=== PATIENT | female | born 1940 | race Caucasian/White ===

== ENCOUNTER 2016-09-04 21:36 | Inpatient (IN) ==
[2016-09-04] MEDS ORDERED: CLINDAMYCIN INJ 900 MG in PREMIX 1 EACH IV STA (21:59)
[2016-09-04] MEDS ORDERED: FUROSEMIDE 100 MG/10 ML VIAL IV STA (21:59)
[2016-09-04] MEDS ORDERED: ALBUTEROL/IPRATROPIUM 3 ML NEB RESP TX STA (21:59)
[2016-09-04] MEDS ORDERED: ASPIRIN 325 MG TABLET PO STA (21:59)
--- NOTE | 2016-09-04 22:05 | Emergency Department Note ---
Arrival - Arrival Chief Complaint: Shortness of Breath ED Nursing Triage Note: C/O SOB with minimal exertion or laying down/Lower ext edema. Onset a couple of days ago and progressively getting worse. Pt reports a history of CHF. Pt was given Lasix 40mg by EMS Mode of Arrival: Stretcher Limitations: No Limitations Source: Patient Time Seen by Provider: 09/04/16 21:59 - History of Present Illness HPI Narrative: This 75-year-old white female visiting the area presents with 2 days of progressive dyspnea on exertion and at rest with lower extremity edema as well as left lower extremity pain. Patient has had complaints of orthopnea and PND associated with intermittent left sided chest pain in association with this situation. Patient has long-standing coronary artery disease and is status post CABG, congestive heart failure, and atrial fibrillation. Currently the patient speaks in full sentences and does not appear in acute distress. Onset (ago): day(s) (Patient presents 2 days post onset of symptoms) Date of Last Menstrual Period: Hysterectomy Allergies/Adverse Reactions: Allergies Allergy/AdvReac Type Severity Reaction Status Date / Time No Known Allergies Allergy Verified 09/04/16 21:45 Home Medications: Home Medications Medication Instructions Recorded Confirmed Type Aspirin [Aspirin EC] 81 mg PO DAILY 09/04/16 09/04/16 History Atorvastatin [Lipitor] 40 mg PO DAILY 09/04/16 09/04/16 History Carbidopa/Levodopa 25-100 [Sinemet 1 tablet PO TID 09/04/16 09/04/16 History 25-100] Fenofibrate [Tricor] 145 mg PO DAILY 09/04/16 09/04/16 History Furosemide Tab [Lasix Tab] 80 mg PO DAILY PRN 09/04/16 09/04/16 History Levothyroxine Tab [Synthroid Tab] 88 mcg PO DAILY@0700 09/04/16 09/04/16 History Lipase/Protease/Amylase [Zenpep 2 capsule PO TID W/MEALS 09/04/16 09/04/16 History 15,000 Units] Losartan [Cozaar] 50 mg PO DAILY 09/04/16 09/04/16 History Methocarbamol Tab [Robaxin Tab] 500 mg PO QID 09/04/16 09/04/16 History Mirtazapine [Remeron] 30 mg PO BEDTIME 09/04/16 09/04/16 History Ospemifene [Osphena] 60 mg PO DAILY 09/04/16 09/04/16 History Potassium Chloride 10 meq PO DIRECTED PRN 09/04/16 09/04/16 History Pramipexole Di-HCl [Pramipexole 1 mg PO BID 09/04/16 09/04/16 History Dihydrochloride] Pramipexole [Mirapex] 1 mg PO BID 09/04/16 09/04/16 History buPROPion XL [Wellbutrin Xl] 150 mg PO DAILY 09/04/16 09/04/16 History clonazePAM [Klonopin] 1 mg PO BID 09/04/16 09/04/16 History dilTIAZem HCl [Diltiazem HCl] 120 mg PO DAILY 09/04/16 09/04/16 History Review of System - Review of System 12 point system: reviewed and no additional remarkable complaints except as stated - Review of System Constitutional: Present: as per HPI Respiratory: Present: as per HPI Cardiovascular: Present: as per HPI Musculoskeletal: Present: as per HPI Medical,Surgical,& Family Hx - Medical History Cardio: History of: Cardiac Dysrhythmia (AFib), CHF, Hypertension Neurology: History of: Parkinson's Disease - Social History Smoking Status: Former smoker Frequency of Alcohol Use: None Type of Drug Use: None Exam Physical Examination: GENERAL: Well developed, well nourished elderly white in no acute distress. HEENT: Normocephalic. No trauma. Moist mucous membranes. EOMI. PERRLA. ENT NML NECK: Supple. No adenopathy. No JVD CARDIAC: Regular. No murmurs. Heart rate 90 CHEST: Scattered bibasilar inspiratory rales. No respiratory distress. O2 sat 97% ABDOMEN: Soft. Nontender. Active bowel sounds. EXTREMITIES: No trauma. Normal ROM. 1+ pedal edema. SKIN: No diaphoresis. No rash. Superficial cellulitis of the left lower extremity with some left calf tenderness with soft Homans sign NEURO: Alert. Neuro intact no focal deficits. Vital Signs: Vital Signs Temperature 98.9 F 09/04/16 21:36 Pulse Rate 78 09/04/16 22:27 Respiratory Rate 18 09/04/16 22:27 Blood Pressure 123/79 09/04/16 21:36 O2 Sat by Pulse Oximetry 99 09/04/16 22:27 Course - Reevaluation(s) Reevaluation #1: Advised patient with the multiplicity of problems she has, she will have to face hospitalization. - Consultations Consultation #1: Discussed with hospitalist service who will admit for further evaluation treatment. Results - Labs CBC & BMP: 09/04/16 21:49 09/04/16 21:49 Labs: I reviewed the laboratory and noted the elevated white blood cell count and BNP. - Impressions EKG: Sinus rhythm at 90 with normal TN interval and QRS duration. Normal ST segments, normal EKG. - Diagnostic Findings Procedure: Chest x-ray: image reviewed by me, report reviewed by me (Mild cardiomegaly otherwise unremarkable), Ultrasound: image reviewed by me, report reviewed by me (Left leg: Stent left common femoral vein, nonoccluding thrombus left common femoral vein, no DVT in the femoral, proximal deep femoral, or popliteal veins.) Disposition Clinical Impression: Congestive heart failure, Superficial cellulitis LLE, Deep vein thrombosis (DVT ) of femoral vein of left lower extremity Case discussed with: patient, patient's family Disposition: Still a Patient Condition: Guarded Time of Disposition: 00:51
[2016-09-04] MEDS ORDERED: NITROGLYCERIN 2% OINT 1 INCH/GM PACK TOP STA (22:06)
[2016-09-04 22:12] LABS: Basophils # 0.1 10*3/uL (0.0-0.2); Basophils % 0.4 % (0.0-0.8); Eosinophils # 0.8 10*3/uL (0.0-0.87); Eosinophils % 4.9 % (0.00-10.9); Hematocrit 32.3 VOL% (35.7-47.0); Hemoglobin 11.2 GM/DL (12.0-16.0); Immature Granulocytes % 0.5 %; Immature Granulocytes Absolute 0.08 #; Lymphocytes # 1.8 10*3/uL (1.4-4.0); Lymphocytes % 11.6 % (21.3-54.2); Mean Corpuscular HGB Conc 34.7 GM/DL (32-36); Mean Corpuscular Hemoglobin 32 PG (27-34); Mean Corpuscular Volume 92.6 FL (87-102); Mean Platelet Volume 11.8 FL (9.6-12.0); Monocytes # 1.1 10*3/uL (0.11-0.8); Monocytes % 7.3 % (1.7-12.7); Neutrophils # 11.7 10*3/uL (1.4-7.4); Neutrophils % 75.3 % (38.7-73.9); Platelet Count 239 T/CUMM (130-400); Red Blood Count 3.49 MC/CUMM (3.8-5.5); Red Cell Distribution Width 15.8 % (9.3-17.3); White Blood Count 15.6 T/CUMM (4-12)
[2016-09-04] MEDS ORDERED: NITROGLYCERIN 2% OINT 1 INCH/GM PACK TOP ONE (22:13)
[2016-09-04] MEDS ORDERED: CLINDAMYCIN INJ 50 ML IV ONE (22:13)
[2016-09-04] MEDS ORDERED: FUROSEMIDE 100 MG/10 ML VIAL ONE (22:13)
[2016-09-04] MEDS ORDERED: ASPIRIN 325 MG TABLET ONE (22:14)
[2016-09-04 22:18] LABS: INR 1.4; PT Patient Result 14.8 SECS; Partial Thromboplastin Time 35.9 SECS (0-40)
--- NOTE | 2016-09-04 22:24 | XRay Report ---
Referring Physician: Efrain Cerda Exam: XR chest 1V portable Date: September 04, 2016 at 10:04 PM Reason: Shortness of breath Comparison: None Findings: There is mild cardiomegaly and sternotomy change. Calcified left hilar lymph nodes are present, and there is likely a small calcified granuloma at the left lung base. The lungs are poorly expanded, and there is minimal bibasilar atelectasis. No pneumothorax or pleural effusion is identified. No acute osseous process is seen. Impression: 1. Mild cardiomegaly. 2. The lungs are poorly expanded, and there is minimal bibasilar atelectasis. Follow-up with a chest PA/lateral study would be helpful to better evaluate the lung bases. PROCEDURE INTERPRETED AT [facility] DEPARTMENT OF RADIOLOGY Final Report Signed by: Dr. Aroldo Elam
[2016-09-04 22:29] LABS: Apearance,Urine CLEAR (Clear); Bilirubin,Urine Negative (Negative); Blood, Urine Negative (Negative); Glucose,Urine (UA) Negative (Negative); Hyaline Casts,Urine 1 /LPF (0-3); Ketones,Urine Negative (Negative); Nitrite,Urine Negative (Negative); Protein,Urine Negative; Urine Color Straw (Yellow); Urine Specific Gravity 1.004 (1.001-1.035); Urine Urobilinogen < 2.0 EU/DL (0.2-1.0)
[2016-09-04 22:48] LABS: Alanine Aminotransferase 10 U/L (13-56); Albumin 3.1 G/DL (3.4-5.0); Alkaline Phosphatase 68 U/L (45-117); Aspartate Amino Transferase 87 U/L (0-37); Blood Urea Nitrogen 19 MG/DL (7-18); Calcium 8.3 MG/DL (8.5-10.1); Glucose 99 MG/DL (74-106); Osmolality,Calculated 278.5 MOS/KG (273-304); Potassium 4.2 MMOL/L (3.5-5.1); Sodium 139 MMOL/L (136-145); Total Protein 6.6 G/DL (6.4-8.3); Troponin I Only < 0.015 NG/ML (0.00-0.045)
[2016-09-05] MEDS ORDERED: ACETAMINOPHEN 325 MG TABLET PO PRN (02:25)
[2016-09-05] MEDS ORDERED: MAGNESIUM SULF RIDER 4 GM in PREMIX 1 EACH IV PRN (02:25)
[2016-09-05] MEDS ORDERED: ONDANSETRON 4 MG/2 ML VIAL IV PRN (02:25)
[2016-09-05] MEDS ORDERED: ENOXAPARIN 40 MG/0.4 ML SYRINGE SUBCUT SCH (02:30)
--- NOTE | 2016-09-05 02:35 | Hospitalist History & Physical ---
Assessment and Plan (1) Cellulitis Status: Acute Current Visit: Yes (2) Acute exacerbation of congestive heart failure Status: Acute Current Visit: Yes (3) Peripheral vascular disease Status: Acute Current Visit: Yes (4) Chronic anticoagulation Status: Acute Current Visit: Yes (5) Deep vein thrombosis (DVT) of femoral vein of left lower extremity Status: Acute Assessment and plan: Our plan for this patient will be admission to a monitored bed. We will continue her home meds as appropriate including her Eliquis. Cannot IV diurese the patient. Check cardiac enzymes. Reevaluate patient in the morning. Patient receives all her healthcare out of state. Current Visit: Yes History of Present Illness Chief complaint: Shortness of breath lower extremity swelling History of present illness: Ms. Barros is a 75 year old female with past medical history significant for congestive heart failure peripheral vascular disease coronary artery disease and atrial fibrillation who was in her normal state of health for the past few days. Patient is from out of town lives in [place] and is been visiting from her brother for the past week. Patient reportedly got short of breath and complained of shoulder pain. She reported increased swelling in her lower extremities. She reported increased shortness of breath with exertion. She has peripheral vascular disease and had a stent placed in iliac vein on the left side. Patient was found to have a thrombus nonoccluding there. She is on blood thinners Eliquis. There is a question about whether she is compliant or not. Patient does have superficial cellulitis noted also. Family got concerned and called EMS and they brought up to our hospital for further evaluation. Patient also reports some cases of nausea I was consulted to admit the patient to the emergency room. Home Medications Medication Instructions Recorded Confirmed Type Aspirin [Aspirin EC] 81 mg PO DAILY 09/04/16 09/04/16 History Atorvastatin [Lipitor] 40 mg PO DAILY 09/04/16 09/04/16 History Carbidopa/Levodopa 25-100 [Sinemet 1 tablet PO TID 09/04/16 09/04/16 History 25-100] Fenofibrate [Tricor] 145 mg PO DAILY 09/04/16 09/04/16 History Furosemide Tab [Lasix Tab] 80 mg PO DAILY PRN 09/04/16 09/04/16 History Levothyroxine Tab [Synthroid Tab] 88 mcg PO DAILY@0700 09/04/16 09/04/16 History Lipase/Protease/Amylase [Zenpep 2 capsule PO TID W/MEALS 09/04/16 09/04/16 History 15,000 Units] Losartan [Cozaar] 50 mg PO DAILY 09/04/16 09/04/16 History Methocarbamol Tab [Robaxin Tab] 500 mg PO QID 09/04/16 09/04/16 History Mirtazapine [Remeron] 30 mg PO BEDTIME 09/04/16 09/04/16 History Ospemifene [Osphena] 60 mg PO DAILY 09/04/16 09/04/16 History Potassium Chloride 10 meq PO DIRECTED PRN 09/04/16 09/04/16 History Pramipexole Di-HCl [Pramipexole 1 mg PO BID 09/04/16 09/04/16 History Dihydrochloride] Pramipexole [Mirapex] 1 mg PO BID 09/04/16 09/04/16 History buPROPion XL [Wellbutrin Xl] 150 mg PO DAILY 09/04/16 09/04/16 History clonazePAM [Klonopin] 1 mg PO BID 09/04/16 09/04/16 History dilTIAZem HCl [Diltiazem HCl] 120 mg PO DAILY 09/04/16 09/04/16 History Apixaban [Eliquis] 5 mg PO BID 09/05/16 09/05/16 History Allergies Allergy/AdvReac Type Severity Reaction Status Date / Time No Known Allergies Allergy Verified 09/04/16 21:45 Medical,Surgical,& Family Hx - Medical History Cardio: History of: Cardiac Dysrhythmia (AFib), CHF, Hypertension Neurology: History of: Parkinson's Disease - Surgical History Cardiac Surgeries: Sugical HX of: Cardiac Surgery Additional Surgical History: Stent placement in iliac vein - Family History Family History: Reports;: Family Heart Disease, Family Hypertension, Family Stroke - Social History Smoking Status: Former smoker Frequency of Alcohol Use: None Type of Drug Use: None 12 point system: reviewed and no additional remarkable complaints except as stated Exam - Constitutional General appearance: under weight - Head Head exam: Present: normal inspection - Eye Eye exam: Present: EOMI Pupils: Present: ERNESTO - ENT ENT exam: Present: normal exam - Neck Neck exam: Present: normal inspection - Respiratory Respiratory exam: Present: clear to auscultation bilaterally - Cardiovascular Cardiovascular exam: Present: regular rate and rhythm - GI/Abdominal GI/Abdominal exam: Present: normal bowel sounds - Extremities Exam Extremities exam: Present: normal inspection, calf tenderness, edema - Back Exam Back exam: Present: normal inspection - Neurological Exam Neurological exam: Present: alert - Psychiatric Psychiatric exam: Present: flat affect - Skin Skin exam: Present: erythema (Noted on the left lower extremity) Results - Labs CBC & BMP: 09/04/16 21:49 09/04/16 21:49
[2016-09-05] MEDS: APIXABAN 5 MG TABLET PO SCH ×2 (03:21→20:20)
[2016-09-05] MEDS: CEFTAROLINE 400 MG in SODIUM CHLORIDE 0.9% 100 ML IV SCH ×2 (04:55→16:59)
[2016-09-05] MEDS: LEVOTHYROXINE 88 MCG TABLET PO SCH (06:07)
[2016-09-05 06:35] LABS: Basophils % 0.3 % (0.0-0.8); Eosinophils # 0.4 10*3/uL (0.0-0.87); Eosinophils % 3.2 % (0.00-10.9); Hematocrit 28.9 VOL% (35.7-47.0); Hemoglobin 9.8 GM/DL (12.0-16.0); Immature Granulocytes % 0.5 %; Immature Granulocytes Absolute 0.06 #; Lymphocytes # 1.1 10*3/uL (1.4-4.0); Lymphocytes % 10.2 % (21.3-54.2); Mean Corpuscular HGB Conc 33.9 GM/DL (32-36); Mean Corpuscular Hemoglobin 31 PG (27-34); Mean Corpuscular Volume 92.3 FL (87-102); Mean Platelet Volume 11.5 FL (9.6-12.0); Monocytes % 8.8 % (1.7-12.7); Neutrophils # 8.6 10*3/uL (1.4-7.4); Platelet Count 205 T/CUMM (130-400); Red Blood Count 3.13 MC/CUMM (3.8-5.5); Red Cell Distribution Width 15.9 % (9.3-17.3); White Blood Count 11.1 T/CUMM (4-12)
--- NOTE | 2016-09-05 06:35 | Ultrasound Report ---
US venous doppler LE LT Indication: DVT. Comparison: None. Technique: Grayscale, spectral, and color Doppler interrogation of the left lower extremity veins was performed. Augmentation and compression was performed. Findings: Grayscale, color Doppler, and pulsed Doppler evaluation of the veins of the left lower extremity demonstrate nonoccluding thrombus within the left common femoral vein. Patient has stent in left common femoral vein. Question prior harvesting versus ablation of left saphenous vein. IMPRESSION: Nonocclusive thrombus within the left common femoral vein. Preliminary report was issued by [facility]. PROCEDURE INTERPRETED AT [facility] DEPARTMENT OF RADIOLOGY Final Report Signed by: Dr Johnnie Broussard
[2016-09-05 07:04] LABS: Albumin 2.6 G/DL (3.4-5.0); Calcium 7.7 MG/DL (8.5-10.1); Osmolality,Calculated 280.5 MOS/KG (273-304); Potassium 3.2 MMOL/L (3.5-5.1); Total Protein 5.9 G/DL (6.4-8.3)
[2016-09-05 07:09] LABS: Troponin I Only < 0.015 NG/ML (0.00-0.045)
[2016-09-05 07:13] LABS: Troponin I Only < 0.015 NG/ML (0.00-0.045)
--- NOTE | 2016-09-05 07:56 | EKG Report ---
Stationary ECG Study [facility] ER Test Date: 09/04/2016 9:43:06 PM Pat Name: TRINIDAD AMEZQUITA Department: Room: 534 Gender: F Interpreter: : 1940 Requested by: Efrain Lawson Order Number: [id number] Reading MD: RODRÍGUEZ LOREDO Intervals Jb[facility] Rate: 90 P: 51 WA: 199 QRS: 31 QRSD: 80 T: 48 QT: 343 QTc: 391 Interpretive Statements SINUS RHYTHMAt 90 bpm Mild NST Electronically Signed On 09-10-16 15:17:08 CDT by RODRÍGUEZ LOREDO [email or web address]
[2016-09-05] MEDS ORDERED: FUROSEMIDE 40 MG/4 ML VIAL IV SCH (08:00)
[2016-09-05] MEDS ORDERED: PRAMIPEXOLE 1 MG TABLET PO SCH (09:00)
[2016-09-05] MEDS ORDERED: DILTIAZEM CD 120 MG CAPSULE PO SCH (09:00)
[2016-09-05] MEDS: CARBIDOPA/LEVODOPA 25-100 MG TABLET PO SCH ×3 (09:06→20:19)
[2016-09-05] MEDS: buPROPion XL 150 MG TABLET PO SCH (09:07)
[2016-09-05] MEDS: ATORVASTATIN 40 MG TABLET PO SCH (09:07)
[2016-09-05] MEDS: PRAMIPEXOLE 1 MG TABLET PO SCH ×2 (09:07→20:18)
[2016-09-05] MEDS: clonazePAM 0.5 MG TABLET PO SCH ×2 (09:07→20:19)
[2016-09-05] MEDS: METHOCARBAMOL 500 MG TABLET PO SCH ×4 (09:07→20:19)
[2016-09-05] MEDS: FENOFIBRATE 145 MG TABLET PO SCH (09:07)
[2016-09-05] MEDS: ASPIRIN EC 81 MG TABLET PO SCH (09:07)
[2016-09-05] MEDS ORDERED: POTASSIUM CHLORIDE 8 MEQ CAPSULE PO ONE (10:33)
[2016-09-05] MEDS ORDERED: POTASSIUM CHLORIDE 20 MEQ TABLET PO ONE (11:18)
[2016-09-05] MEDS ORDERED: SODIUM CHLORIDE 0.9% 500 ML IV ONE ×2 (11:33→15:02)
--- NOTE | 2016-09-05 15:08 | Hospitalist Progress Note ---
Assessment and Plan (1) Hypotension Status: Acute Assessment and plan: will transfer to the ICU continue with IVF, and possibly pressors Blood cultures, urine cultures cardiac enzymes, FBC, electrolytes urea hold bp meds for now continue with IV antibiotics Current Visit: Yes (2) Altered mental status Status: Acute Assessment and plan: patient is more restless and looks dry Plan IVF CT scan Current Visit: Yes Hospitalist: Subjective Interval history: I was called to see patient who was admitted overnight for SOB, doppler showed a left DVt but patient already takes Eliquis for A. Fib,PVD s/p stent in the iliac left vein.She was on IV Lasix and Diltiazem and this afternoon,her blood pressure started dropping in the 90s/50s. She was bolused with IVF and patient had become more restless, so we will move to the unit for more IVF and possible pressors. We will also get a CT of the head. Exam - Constitutional Vitals: Period Temp Pulse Resp BP Sys/Pacheco Pulse Ox Last 24 Hr 97.5 F-98.5 F 55-71 16-20 90-145/40-71 94-100 General appearance: no acute distress, other (restless) - Head Head exam: Present: normal inspection - Respiratory Respiratory exam: Present: clear to auscultation bilaterally - Cardiovascular Cardiovascular exam: Present: regular rate and rhythm - GI/Abdominal GI/Abdominal exam: Present: normal bowel sounds - Extremities Exam Extremities exam: Present: normal inspection Results - Labs CBC & BMP: 09/05/16 05:48 09/05/16 05:48 Lab Results: I have reviewed the past 24 hour labs
[2016-09-05] MEDS ORDERED: SODIUM CHLORIDE 0.9% 1,000 ML IV SCH (15:30)
--- NOTE | 2016-09-05 16:02 | CT Report ---
Referring physician: Lorie Vieyra MD Exam: CT brain without contrast Date: September 05, 2016 Comparison: None Reason: Decreased level of consciousness The patient is an inpatient who was admitted on September 05, 2016. Technique: Axial images of the head were obtained without the use of contrast. Total DLP was 1103.6 mGy*cm. Findings: There is [id number] generalized cerebral and cerebellar atrophy/volume loss. No hydrocephalus or midline shift is present. There is no evidence of recent intracranial hemorrhage, abnormal mass effect or acute infarction. No acute osseous process is seen. Prominent calcified plaque is noted at the intracranial internal carotid arteries. The visualized paranasal sinuses are clear. The right mastoid air cells are also clear, but there may be minimal fluid within the inferior left mastoid air cells. Impression: 1. No acute intracranial process is identified. 2. Mild to moderate generalized cerebral and cerebellar atrophy/volume loss. The CT exam was performed using one or more of the following dose reduction techniques: Automated exposure control and adjustment of the mA and/or kV according to patient size. PROCEDURE INTERPRETED AT [facility] DEPARTMENT OF RADIOLOGY Final Report Signed by: Dr. Aroldo Elam
[2016-09-05 16:43] LABS: Basophils % 0.2 % (0.0-0.8); Eosinophils # 0.7 10*3/uL (0.0-0.87); Eosinophils % 5.8 % (0.00-10.9); Hematocrit 27.4 VOL% (35.7-47.0); Immature Granulocytes % 0.4 %; Immature Granulocytes Absolute 0.05 #; Lymphocytes # 1.8 10*3/uL (1.4-4.0); Lymphocytes % 15.4 % (21.3-54.2); Mean Corpuscular HGB Conc 32.8 GM/DL (32-36); Mean Corpuscular Hemoglobin 31 PG (27-34); Mean Corpuscular Volume 93.5 FL (87-102); Mean Platelet Volume 11.4 FL (9.6-12.0); Monocytes # 0.9 10*3/uL (0.11-0.8); Monocytes % 7.4 % (1.7-12.7); Neutrophils # 8.2 10*3/uL (1.4-7.4); Neutrophils % 70.8 % (38.7-73.9); Platelet Count 196 T/CUMM (130-400); Red Blood Count 2.93 MC/CUMM (3.8-5.5); Red Cell Distribution Width 15.9 % (9.3-17.3); White Blood Count 11.5 T/CUMM (4-12)
[2016-09-05] MEDS ORDERED: ZENPEP PO SCH (17:00)
[2016-09-05 17:32] LABS: Blood Urea Nitrogen 27 MG/DL (7-18); Calcium 7.6 MG/DL (8.5-10.1); Glucose 139 MG/DL (74-106); Magnesium 1.3 MG/DL (1.8-2.4); Osmolality,Calculated 287.3 MOS/KG (273-304); Potassium 4.5 MMOL/L (3.5-5.1); Sodium 141 MMOL/L (136-145); Troponin I Only < 0.015 NG/ML (0.00-0.045)
[2016-09-05] MEDS: MAGNESIUM SULF RIDER 2 GM in PREMIX 1 EACH IV PRN ×2 (18:04→19:31)
[2016-09-05] MEDS: SODIUM CHLORIDE 0.9% 1,000 ML IV SCH (19:33)
[2016-09-05] MEDS: MIRTAZAPINE 30 MG TABLET PO SCH (20:18)
[2016-09-06] MEDS: SODIUM CHLORIDE 0.9% 1,000 ML IV SCH (02:55)
[2016-09-06 05:30] LABS: Basophils % 0.3 % (0.0-0.8); Eosinophils # 1.2 10*3/uL (0.0-0.87); Eosinophils % 12.1 % (0.00-10.9); Hemoglobin 9.8 GM/DL (12.0-16.0); Immature Granulocytes % 0.4 %; Immature Granulocytes Absolute 0.04 #; Lymphocytes # 1.4 10*3/uL (1.4-4.0); Lymphocytes % 14.4 % (21.3-54.2); Mean Corpuscular HGB Conc 32.7 GM/DL (32-36); Mean Corpuscular Hemoglobin 31 PG (27-34); Mean Corpuscular Volume 94.6 FL (87-102); Mean Platelet Volume 11.6 FL (9.6-12.0); Monocytes % 9.8 % (1.7-12.7); Neutrophils # 6.2 10*3/uL (1.4-7.4); Platelet Count 217 T/CUMM (130-400); Red Blood Count 3.17 MC/CUMM (3.8-5.5); Red Cell Distribution Width 15.9 % (9.3-17.3); White Blood Count 9.9 T/CUMM (4-12)
[2016-09-06 05:55] LABS: Eosinophils 11 % (0-10); Hypochromasia 1+; Lymphocytes 8 % (20-55); Platelet Estimate Normal; Segmented Neutrophils 72 % (50-85); Total Cells Counted 100
[2016-09-06] MEDS: CEFTAROLINE 400 MG in SODIUM CHLORIDE 0.9% 100 ML IV SCH ×2 (06:11→16:45)
[2016-09-06 06:20] LABS: Calcium 7.4 MG/DL (8.5-10.1); Magnesium 2.6 MG/DL (1.8-2.4); Osmolality,Calculated 290.8 MOS/KG (273-304); Potassium 3.8 MMOL/L (3.5-5.1)
[2016-09-06] MEDS: LEVOTHYROXINE 88 MCG TABLET PO SCH (06:44)
[2016-09-06] MEDS: METHOCARBAMOL 500 MG TABLET PO SCH ×4 (08:31→22:30)
[2016-09-06] MEDS: CARBIDOPA/LEVODOPA 25-100 MG TABLET PO SCH ×3 (08:31→22:30)
[2016-09-06] MEDS: buPROPion XL 150 MG TABLET PO SCH (08:31)
[2016-09-06] MEDS: APIXABAN 5 MG TABLET PO SCH ×2 (08:35→22:30)
[2016-09-06] MEDS: PRAMIPEXOLE 1 MG TABLET PO SCH ×2 (08:36→22:30)
[2016-09-06] MEDS: clonazePAM 0.5 MG TABLET PO SCH (08:37)
[2016-09-06] MEDS: ASPIRIN EC 81 MG TABLET PO SCH (08:37)
[2016-09-06] MEDS: ATORVASTATIN 40 MG TABLET PO SCH (08:38)
[2016-09-06] MEDS: FENOFIBRATE 145 MG TABLET PO SCH (08:38)
--- NOTE | 2016-09-06 09:29 | Hospitalist Progress Note ---
Assessment and Plan - Time spent with patient Time spent with patient: Greater than 30 minutes (1) Deep vein thrombosis (DVT) of femoral vein of left lower extremity Status: Acute Assessment and plan: Continue Eliquis. CT chest to rule out PE given the patient's symptom of shortness of breath. Current Visit: Yes Qualifiers: Chronicity: acute Qualified Code(s): I82.412 - Acute embolism and thrombosis of left femoral vein (2) Peripheral vascular disease Status: Chronic Current Visit: Yes (3) Chronic anticoagulation Status: Chronic Assessment and plan: Continue Eliquis 5 mg twice daily. Patient was started on this for atrial fibrillation. Current Visit: Yes (4) Altered mental status Status: Resolved Current Visit: Yes Hospitalist: Subjective Interval history: Patient seen and examined. Chart reviewed. Patient was transferred from [facility] to the ICU yesterday with altered mental status and some hypotension. She has a new diagnosis of left lower extremity DVT based on the Doppler ultrasound performed in the emergency department. She reports a history of iliac stenting on the left. She routinely follows up with a physician in [place] for this. She is treated with Eliquis 5 mg twice daily for atrial fibrillation. She reports compliance with her medication. She complains of shortness of breath as the primary cause of her visit to the emergency department. A CT of the chest with IV contrast to rule out PE has been ordered. The patient's mental status has improved overnight. She was started on IV fluids for volume repletion. She is able to provide a full history with significant detail. She appears stable for transfer to the floor however a CT of the chest with IV contrast to rule out PE has been ordered as well as an echocardiogram. Exam - Constitutional Vitals: Period Temp Pulse Resp BP Sys/Pacheco Pulse Ox Last 24 Hr 97.1 F-99.3 F 56-85 12-25 90-124/38-80 94-99 Exam: Constitutional System: No distress. No tremulousness. Head: Normocephalic, atraumatic. Ears, Nose and Throat System: No pain or tenderness. No epistaxis or discharge Eyes System: Pupils equal, round, and reactive. Extraocular muscles intact. Neck: Supple, without adenopathy, No jugular venous distention. Respiratory System: Chest clear to auscultation. Cardiovascular System: Heart with irregular rate and rhythm. No murmur. GI System: Abdomen soft, nontender. Normo active bowel sounds present. Musculoskeletal System: limbs with no pedal edema. Full distal pulses. Left lower extremity with redness and warmth to touch. No significant edema noted. Neurological System: No discernable sensory deficit. No aphasia. Psychiatric System: Conversation is rational Results - Labs CBC & BMP: 09/06/16 05:00 09/06/16 05:01 Lab Results: I have reviewed the past 24 hour labs - Diagnostic Findings Procedure: CT - chest: pending, CT: report reviewed by me, Ultrasound: report reviewed by me
--- NOTE | 2016-09-06 12:15 | CT Report ---
CT chest PE study Indication: DVT with SOB Comparison: None Technique: Multiple axial tomographic images of the chest were obtained after the administration of 80 cc Omnipaque 350 intravenous contrast. PE protocol followed. Coronal and sagittal maximum intensity projection images provided. Findings: No segmental or larger pulmonary embolism demonstrated. Coronary artery calcifications present status post CABG. Heart size appears within normal limits. Granulomatous calcifications within mediastinal and hilar lymph nodes. Mildly prominent subcarinal lymph node measuring up to 1.3 cm in short axis dimension. Mildly prominent right lower paratracheal lymph node measuring up to 1.2 cm in short axis dimension. Diffuse emphysematous change of the lungs present. Trace right and small left pleural effusions noted. There is mild right basilar atelectasis posterior inferiorly. There is moderate atelectasis/consolidation within the inferior left lower lobe. Granulomatous calcifications of the liver and spleen. Moderate abdominal ascites present. Diffuse osteopenia. Moderate age-indeterminate anterior compression deformity of T11. IMPRESSION: No segmental or larger pulmonary embolism demonstrated. Status post CABG. Mildly prominent nonspecific lymph node enlargement. Small left and trace right pleural effusions. Moderate atelectasis/consolidation within the left lower lobe. Underlying infection not excluded. Diffuse emphysematous change of the lungs. Moderate abdominal ascites. Age-indeterminate moderate compression deformity of T11. Detailed findings as above. The CT exam was performed using one or more of the following dose reduction techniques: Automated exposure control, adjustment of the mA and/or kV according to patient size, or use of iterative reconstruction technique. PROCEDURE INTERPRETED AT [facility] DEPARTMENT OF RADIOLOGY Final Report Signed by: Dr Johnnie Broussard
[2016-09-06] MEDS ORDERED: CYCLOBENZAPRINE 10 MG TABLET PO ONE (12:30)
[2016-09-07] MEDS: clonazePAM 0.5 MG TABLET PO SCH ×3 (00:52→20:51)
[2016-09-07] MEDS: traMADol 50 MG TABLET PO PRN ×4 (00:53→17:47)
[2016-09-07] MEDS: MIRTAZAPINE 30 MG TABLET PO SCH ×2 (00:53→20:50)
[2016-09-07] MEDS: CEFTAROLINE 400 MG in SODIUM CHLORIDE 0.9% 100 ML IV SCH (05:25)
[2016-09-07] MEDS: LEVOTHYROXINE 88 MCG TABLET PO SCH (06:14)
[2016-09-07 06:23] LABS: Basophils % 0.3 % (0.0-0.8); Eosinophils # 1.1 10*3/uL (0.0-0.87); Eosinophils % 11.8 % (0.00-10.9); Hematocrit 26.7 VOL% (35.7-47.0); Hemoglobin 8.8 GM/DL (12.0-16.0); Immature Granulocytes % 0.7 %; Immature Granulocytes Absolute 0.06 #; Lymphocytes # 1.4 10*3/uL (1.4-4.0); Lymphocytes % 15.7 % (21.3-54.2); Mean Corpuscular Hemoglobin 31 PG (27-34); Mean Corpuscular Volume 93.7 FL (87-102); Mean Platelet Volume 12.5 FL (9.6-12.0); Monocytes # 0.9 10*3/uL (0.11-0.8); Monocytes % 9.4 % (1.7-12.7); Neutrophils # 5.7 10*3/uL (1.4-7.4); Neutrophils % 62.1 % (38.7-73.9); Platelet Count 225 T/CUMM (130-400); Red Blood Count 2.85 MC/CUMM (3.8-5.5); Red Cell Distribution Width 15.9 % (9.3-17.3); White Blood Count 9.2 T/CUMM (4-12)
[2016-09-07 06:48] LABS: Calcium 7.3 MG/DL (8.5-10.1); Potassium 4.4 MMOL/L (3.5-5.1)
[2016-09-07 07:07] LABS: Eosinophils 10 % (0-10); Hypochromasia 1+; Lymphocytes 9 % (20-55); Ovalocytes Slight; Platelet Estimate Adequate; Segmented Neutrophils 75 % (50-85); Total Cells Counted 100
[2016-09-07] MEDS: ATORVASTATIN 40 MG TABLET PO SCH (09:19)
[2016-09-07] MEDS: buPROPion XL 150 MG TABLET PO SCH (09:19)
[2016-09-07] MEDS: APIXABAN 5 MG TABLET PO SCH ×2 (09:19→20:51)
[2016-09-07] MEDS: ASPIRIN EC 81 MG TABLET PO SCH (09:19)
[2016-09-07] MEDS: CARBIDOPA/LEVODOPA 25-100 MG TABLET PO SCH ×3 (09:19→20:51)
[2016-09-07] MEDS: PRAMIPEXOLE 1 MG TABLET PO SCH ×2 (09:19→20:50)
[2016-09-07] MEDS: FENOFIBRATE 145 MG TABLET PO SCH (09:19)
[2016-09-07] MEDS: METHOCARBAMOL 500 MG TABLET PO SCH ×4 (09:19→20:50)
--- NOTE | 2016-09-07 11:40 | Hospitalist Progress Note ---
Assessment and Plan (1) Hypotension Status: Acute Assessment and plan: resolved. patient has been transferred back from the unit. Current Visit: Yes (2) Altered mental status Status: Resolved Assessment and plan: much improved. CT head showed no acute changes. Current Visit: Yes (3) Deep vein thrombosis (DVT) of femoral vein of left lower extremity Status: Acute Assessment and plan: Patient is on Eliquis. CT chest was negative for a PE Current Visit: Yes Qualifiers: Chronicity: acute Qualified Code(s): I82.412 - Acute embolism and thrombosis of left femoral vein (4) Left lower lobe pneumonia Status: Acute Assessment and plan: we will switch to IV Zosyn, she spiked a temp on Teflero. Will repeat BC, SC Current Visit: Yes (5) Hyperlipidemia Status: Acute Assessment and plan: continue with meds Current Visit: Yes (6) Cellulitis Status: Acute Assessment and plan: improving. Current Visit: Yes (7) Hypothyroidism Status: Acute Assessment and plan: continue with supplements Current Visit: Yes (8) Peripheral vascular disease Status: Chronic Assessment and plan: stable. She reports a history of iliac stenting on the left. Current Visit: Yes (9) Left shoulder pain Status: Acute Assessment and plan: will get Xrays,continue pain meds Current Visit: Yes Hospitalist: Subjective Interval history: patient complains of a left shoulder pain and some SOB. CT chest showed no evidence of PE but showed a consolidation in the left lower lung.She also spiked a temp of 100.6.Her leg swelling and redness have improved. Exam - Constitutional Vitals: Period Temp Pulse Resp BP Sys/Pacheco Pulse Ox Last 24 Hr 97.9 F-991 F 69-87 16-20 102-135/46-97 95-100 General appearance: mild distress - Head Head exam: Present: normal inspection - Respiratory Respiratory exam: Present: clear to auscultation bilaterally - Cardiovascular Cardiovascular exam: Present: regular rate and rhythm - GI/Abdominal GI/Abdominal exam: Present: normal bowel sounds - Extremities Exam Extremities exam: Present: other (reduced swelling and redness of the left leg) Results - Labs CBC & BMP: 09/07/16 05:26 09/07/16 05:26 Lab Results: I have reviewed the past 24 hour labs
[2016-09-07] MEDS: PIPERACILLIN/TAZOBACTAM 3,375 MG in SODIUM CHLORIDE 0.9% 100 ML IV SCH ×2 (12:13→20:46)
--- NOTE | 2016-09-07 13:49 | XRay Report ---
XR shoulder 2V BI Indication: Left shoulder pain Comparison: None Technique: Frontal views of the bilateral shoulders in internal and external rotation. Findings: Minimal degenerative change of the bilateral acromion clavicular joints. Inferior acromial spurring demonstrated on the right. Atherosclerotic calcifications present. Cardiomegaly with small volume left pleural fluid and left basilar atelectasis. Underlying infection not excluded. IMPRESSION: As above. PROCEDURE INTERPRETED AT [facility] DEPARTMENT OF RADIOLOGY Final Report Signed by: Dr Johnnie Broussard
--- NOTE | 2016-09-07 17:49 | ECHO Report ---
Tiff Barros Exam Date: 09/06/2016 09:44 Referring Physician: Technologist: Jumana Barrientos RDCS Age: 75 Ht (in): 62 Wt (lb): 114 Gender: F Exam Location: [facility] Echo Indications: Altered mental status, Hypotension, DVT, Peripheral vascular disease, unspecified, Shortness of breath BP: 112 / 47 HR: 66 Rhythm: Sinus Technical Quality: IMPRESSIONS Technically difficult study 2+ left atrial enlargement 1-2+ concentric LVH Normal LV systolic function with ejection fraction estimated to 65% without obvious wall motion abnormality Aortic sclerosis without stenosis and mitral annular calcification noted 1+ mitral and tricuspid regurgitation with RVSP 32 mmHg plus RAP MEASUREMENTS (Male / Female) Normal Values 2D ECHO LV Diastolic Diameter PLAX 2.1 cm 4.2 - 5.9 / 3.9 - 5.3 cm LV Systolic Diameter PLAX 1.3 cm LV Fractional Shortening PLAX 36.2 % IVS Diastolic Thickness 1.5 cm 0.6 - 1.0 / 0.6 - 0.9 cm LVPW Diastolic Thickness 1.4 cm 0.6 - 1.0 / 0.6 - 0.9 cm RV Internal Dim ED PLAX 2.4 cm Aortic Root Diameter 2.3 cm LA Systolic Diameter LX 4.5 cm 3.0 - 4.0 / 2.7 - 3.8 cm DOPPLER TR Peak Velocity 281.0 cm/s TR Peak Gradient 31.6 mmHg FINDINGS Left Ventricle Normal left ventricular cavity size. Mild left ventricular hypertrophy. Left ventricular ejection fraction is estimate Right Ventricle The right ventricle is normal in size and function. Right Atrium The right atrium is mildly enlarged. Left Atrium The left atrium is mildly enlarged. Mitral Valve Morphologically normal mitral valve without significant stenosis or prolapse. There is no mitral regurgitation. Aortic Valve Morphologically normal aortic valve without significant sclerosis or stenosis. There is no aortic regurgitation. Tricuspid Valve Morphologically normal tricuspid valve. Trace to mild tricuspid valve regurgitation. Tricuspid regurgitation velocities suggest a PAP of 42 mmHg. Pulmonic Valve Morphologically normal pulmonic valve without significant stenosis. There is no pulmonic regurgitation. Pericardium Normal pericardium without effusion. Aorta Normal ascending aorta dimension. Lyndon Salmeron (Electronically Signed) Final Date: 07 Sep 2016 17:48
[2016-09-08] MEDS: traMADol 50 MG TABLET PO PRN (03:20)
[2016-09-08] MEDS: PIPERACILLIN/TAZOBACTAM 3,375 MG in SODIUM CHLORIDE 0.9% 100 ML IV SCH ×2 (04:13→11:47)
[2016-09-08] MEDS: LEVOTHYROXINE 88 MCG TABLET PO SCH (06:00)
[2016-09-08] MEDS: CARBIDOPA/LEVODOPA 25-100 MG TABLET PO SCH (09:18)
[2016-09-08] MEDS: FENOFIBRATE 145 MG TABLET PO SCH (09:18)
[2016-09-08] MEDS: buPROPion XL 150 MG TABLET PO SCH (09:19)
[2016-09-08] MEDS: PRAMIPEXOLE 1 MG TABLET PO SCH (09:19)
[2016-09-08] MEDS: APIXABAN 5 MG TABLET PO SCH (09:19)
[2016-09-08] MEDS: ASPIRIN EC 81 MG TABLET PO SCH (09:19)
[2016-09-08] MEDS: clonazePAM 0.5 MG TABLET PO SCH (09:19)
[2016-09-08] MEDS: METHOCARBAMOL 500 MG TABLET PO SCH ×2 (09:19→13:49)
[2016-09-08] MEDS: ATORVASTATIN 40 MG TABLET PO SCH (09:19)
--- NOTE | 2016-09-08 12:12 | Discharge Summary ---
Hospital Course - Hospital Course Hospital Course: Ms. Barros is a 75 year old female with past medical history significant for congestive heart failure, peripheral vascular disease coronary artery disease s/ p stent in the left iliac vein, and atrial fibrillation who presented with SOB, leg swelling and pain. She also has a history of DVT of her left femoral vein which she is taking Eliquis for. She was diagnosed with cellulitis and was admitted and started on IV antibiotics.BC and UC were negative. CXR showed a left lower lobe pneumonia so her antibiotic was broadened. Her blood pressure dropped and her mental status changed so she was transferred to the unit.CT head showed no acute changes.CT chest was negative for a PE. She complained of a left shoulder pain and Xrays showed minimal degenerative change of the bilateral acromion clavicular joints.This improved with pain meds.Her symptoms improved, family requests that patient goes home for mother's day. She feel great this am, afebrile,vitals are stable.I held some of her blood pressure meds due to RF which has improved now. PCP to re-address as outpatient - Time spent with patient Time with patient DS: Greater than 30 minutes (Time spent:35mins) Diagnosis - Discharge Diagnosis (1) Hypotension Status: Acute (2) Altered mental status Status: Resolved (3) Deep vein thrombosis (DVT) of femoral vein of left lower extremity Status: Acute (4) Left lower lobe pneumonia Status: Acute (5) Hyperlipidemia Status: Acute (6) Cellulitis Status: Acute (7) Hypothyroidism Status: Acute (8) Peripheral vascular disease Status: Chronic (9) Left shoulder pain Status: Acute Discharge Plan - Discharge Data Disposition: Home Health Service Condition at Discharge: Stable Discharge Diet: heart healthy Activity: resume usual activities as tolerated - Discharge Medications New Acetaminophen Tab [Tylenol Tab] 650 mg PO Q4H PRN #0 tablet PRN Reason: Fever, Headache, Mild Pain Levofloxacin Tab [Levaquin Tab] 500 mg PO DAILY #7 tablet Continue Lipase/Protease/Amylase [Zenpep 15,000 Units] 2 capsule PO TID W/MEALS clonazePAM [Klonopin] 1 mg PO BID Ospemifene [Osphena] 60 mg PO DAILY Mirtazapine [Remeron] 30 mg PO BEDTIME Atorvastatin [Lipitor] 40 mg PO BEDTIME Pramipexole [Mirapex] 1 mg PO BID Fenofibrate [Tricor] 145 mg PO DAILY Aspirin [Aspirin EC] 81 mg PO DAILY buPROPion XL [Wellbutrin Xl] 150 mg PO DAILY Levothyroxine Tab [Synthroid Tab] 88 mcg PO DAILY@0700 Pramipexole Di-HCl [Pramipexole Dihydrochloride] 1 mg PO BID Methocarbamol Tab [Robaxin Tab] 500 mg PO QID PRN PRN Reason: Pain dilTIAZem HCl [Diltiazem HCl] 120 mg PO DAILY Apixaban [Eliquis] 5 mg PO BID Diphenoxylate/Atrop 2.5-0.025 [Lomotil Tab] 1 tablet PO Q4HR PRN PRN Reason: Diarrhea Bisoprolol [Zebeta] 2.5 mg PO DAILY Pro Optic Zinc Free Gel 1 capsule PO DAILY Ferrous Sulfate [Iron] 325 mg PO DAILY Ergocalciferol (Vitamin D2) [Vitamin D2] 1 capsule PO ONCE Carbidopa/Levodopa 25-100 [Sinemet 25-100] 1 tablet PO TID Tramadol HCl [Tramadol Tab] 50 mg PO Q6H PRN #20 PRN Reason: Pain Discontinued Furosemide Tab [Lasix Tab] 80 mg PO DAILY PRN PRN Reason: weight gain Potassium Chloride 10 meq PO DIRECTED PRN PRN Reason: as directed Losartan [Cozaar] 50 mg PO DAILY Spironolactone [Aldactone] 50 mg PO DAILY - Follow Up or Referral - Forms/Instructions Additional Discharge Instructions: Follow with PCP in 1week. Exam - Constitutional Vitals: Period Temp Pulse Resp BP Sys/Pacheco Pulse Ox Last 24 Hr 97.6 F-98.7 F 69-78 16-20 116-176/58-89 90-96 General appearance: no acute distress - Head Head exam: Present: normal inspection - Respiratory Respiratory exam: Present: clear to auscultation bilaterally - Cardiovascular Cardiovascular exam: Present: regular rate and rhythm - GI/Abdominal GI/Abdominal exam: Present: normal bowel sounds - Extremities Exam Extremities exam: Present: normal inspection Discharge Results Procedures and tests throughout hospitalization: Pending Orders 09/05/16 16:29 Blood Culture Routine 09/07/16 11:48 Sputum Culture and Gram Stain Routine 09/07/16 12:12 Blood Culture Routine 09/07/16 20:20 Urine Culture Routine Labs on day of discharge: Preliminary micro results at discharge 09/07/16 20:20 Urine Culture - Preliminary Urine,Voided No Growth at 12 hours. 09/05/16 16:29 Blood Culture - Preliminary Blood No growth at 1 day 09/05/16 16:28 Blood Culture - Preliminary Blood No growth at 1 day DS: Provider Date of admission: 09/05/16 01:50 Primary care physician: . No PCP Attending physician on admission: Donte Gill MD Discharging clinician: Lorie Vieyra MD
[2016-09-08 13:37] VITALS: BP 134/66
--- NOTE | 2016-09-17 16:00 | Physician Query Form ---
CLICK EDIT DOCUMENT TO SELECT QUERY ANSWER --> OK --> SIGN Malena Mosley RN Clinical Take Off Man W) [phone] (f) [phone] [email or web address] PROVIDERS: Make your selection(s) from the choices in EACH section by typing an "x" and enter comments in the comment section. Please use your independent medical judgment in providing your response. This request does not imply that any particular answer is desired or expected. CLINICAL INDICATORS: (Providers should not edit this section) Based on documentation of "CHF exacerbation", BNP= 268, Echo showed EF of 65% with normal LV systolic function. Pt. treated with IV Lasix. Please provide further specificity regarding CHF. TYPE: ( ) Systolic (HFrEF - heart failure with reduced systolic function/EF) ( x) Diastolic (HFpEF - heart failure with preserved systolic function/EF) ( ) Combined Systolic/Diastolic ( ) Other, please specify: ( ) Clinically unable to determine ( ) The patient does NOT have CHF COMMENTS: PLEASE ALSO DOCUMENT RESPONSE IN PROGRESS NOTES AND/OR DISCHARGE SUMMARY Use of terms such as suspected, likely, or probable (associated with a specific diagnosis that is being evaluated, monitored, or treated as if it exists) are acceptable and can be restated in the discharge summary if not ruled out. MTDD
== END 2016-09-08 13:49 | disposition home health service (06) | DRG 291 ==
LOC: EDBD → N.ED 21:36 → N.EDINP 09-05 01:50 → SUATTDRO 09-05 01:50 → N.5E 09-05 02:09 → N.ICU 09-05 15:43 → N.5E 09-06 18:53
PROVIDERS: ADMIT Internal Medicine; ATTEND Internal Medicine